=== PATIENT | female | born 1965 | race Caucasian/White ===

== ENCOUNTER → 2018-10-19 | Day surgery (SDC) | payer BC ==
[~2018-10-19] MED LIST: B12; COQ10; CRESTOR10 MG; D3; FENTANYL CITRATE/PF 100MCG/2 ML INJ ONE; HYOSCYAMINE SULFATE 0.5 MG/ML INJ ONE; LIDOCAINE HCL 2% LOCAL INJ 5 ML SDV VIAL INJ ONE; LOSARTAN POTAS100 MG PO; MIDAZOLAM HCL 2 MG/2 ML VIAL ONE; MULTI-VITAMIN1 EACH; PROPOFOL IV EMULSION 10 MG/ML 50 ML VIAL ONE; SYNJARDY PO
--- OUTSIDE RECORDS SUMMARY | 2018-10-19 06:16 | XMS REPORT | Clinical Summary ---
Author Author Sanjeev Marquez Organization [facility] Address Unknown Phone Unavailable Care Team Providers Care Pillowcase Turner Name Role Phone PCP Unavailable Allergies Not on File Medications Not on file Active Problems Not on file Social History Date Tobacco Use Types Packs/Day Years Used Never Assessed Sex Assigned at Date Recorded Not on file Industry Job Start Date Occupation Not on file Not on file Not on file Travel End Travel History Travel Start No recent travel history available. Last Filed Vital Signs Not on file Plan of Treatment Health Maintenance Due Date Last Done Comments CERVICAL CANCER SCREENING 1984 BREAST CANCER SCREENING 2013 COLON CANCER SCREENING 2013 SHINGLES VACCINES (#1) 2013 INFLUENZA VACCINE 03/20/2018 Results Not on fileafter 10/18/2017 Advance Directives Patient has advance care planning documents on file. For more information, laura bello contact: Sanjeev Marquez [address] [place] [address]
--- OUTSIDE RECORDS SUMMARY | 2018-10-19 06:16 | XMS REPORT ---
Author Author [facility] Address Unknown Phone Unavailable Care Team Providers Care Salesforce Trainer Name Role Phone Unavailable Unavailable Payers Payer Name Policy Type Policy Number Effective Date Expiration Date Problems This patient has no known problems. Allergies, Adverse Reactions, Alerts Allergy Name Allergy Type Status Severity Reaction(s) Onset Date Inactive Date Treating Clinician Comments No Known Contrast Allergies DA Active U 2008-05-25 00:00:00 No Known Drug Allergies DA Active U 2008-05-25 00:00:00 No Known Food Allergies DA Active U 2008-05-25 00:00:00 No Known Other Allergies DA Active U 2008-05-25 00:00:00 Medications This patient has no known medications.
--- NOTE | 2018-10-19 13:32 | Operative Report ---
DATE OF PROCEDURE: 10/19/2018 SURGEON: Frank Cobos MD PROCEDURE: Colonoscopy and polypectomy. INDICATIONS FOR COLONOSCOPY: Colorectal cancer screening. MEDICATION: The patient was done under MAC. Please see anesthesiologist note. PROCEDURE IN DETAIL: With the patient in left decubitus position, a flexible fiberoptic Olympus colonoscope was inserted into the rectum with ease and advanced all the way to the cecum. Mucosa overlying the cecum appeared to be within normal limits. The scope was then withdrawn slowly. Mucosa overlying the ascending and the transverse grossly appeared to be within normal limits other than from minimal diverticular disease. One polyp was snared from the descending colon. One polyp was snared from the sigmoid colon. Diverticular disease was more prominent in the left colon. One polyp was hot biopsied from the rectum. The scope was then retroflexed into the distal rectum and moderate-sized internal hemorrhoids were noted none of which was actively bleeding. The scope was then straightened out and was subsequently withdrawn. The patient tolerated procedure well. IMPRESSION: 1. Descending colon polyp snared. 2. Diverticulosis. 3. Sigmoid colon polyp snared. 4. Rectal polyp, hot biopsied. 5. Internal hemorrhoids, none actively bleeding. PLAN: Followup histology. Initiate high-fiber low-fat diet. Initiate high-fiber supplement. The patient might benefit from a followup colonoscopy in 3 years. MD LATOYA Sanchez/MODL /[id number] cc: Ronnie Mendoza MD
== END | disposition home or self-care (01) ==
LOC: OR 06:14
PROVIDERS: ATTEND Internal Medicine Gastroenterology
DX: Z12.11 Encounter for screening for malignant neoplasm of colon (principal); D12.4 Benign neoplasm of descending colon; D12.5 Benign neoplasm of sigmoid colon; K62.1 Rectal polyp; K57.30 Diverticulosis of large intestine without perforation or abscess without bleeding; K64.8 Other hemorrhoids; Z01.810 Encounter for preprocedural cardiovascular examination; E11.9 Type 2 diabetes mellitus without complications; I10 Essential (primary) hypertension; F41.9 Anxiety disorder, unspecified
CPT/HCPCS: 36415; 45384; 45385; 82948; 93005; J1980; J2001; J2250; J2704; 45378